=== PATIENT | male | born 1960 | race Caucasian/White ===

== ENCOUNTER → 2016-09-22 | Outpatient (REF) | payer BC | LOC: M LAB REF 16:27 | PROVIDERS: ATTEND Physician Assistant | DX: J02.9 Acute pharyngitis, unspecified (principal) ==

== ENCOUNTER 2018-03-14 17:22 | Emergency (ER) | payer BC | END 2018-03-14 19:59 | disposition home or self-care (01) | LOC: M ED 17:22 | DX: R91.8 Other nonspecific abnormal finding of lung field (principal); R13.10 Dysphagia, unspecified; J44.9 Chronic obstructive pulmonary disease, unspecified; K21.9 Gastro-esophageal reflux disease without esophagitis; Z96.0 Presence of urogenital implants; Z79.899 Other long term (current) drug therapy; Z88.5 Allergy status to narcotic agent; Z87.891 Personal history of nicotine dependence | CPT/HCPCS: 99283 ==

== ENCOUNTER → 2018-03-20 | Outpatient (REF) | payer BC ==
[2018-03-20 14:00] LABS: PLATELET COUNT, AUTOMATED 311 10^3/uL (150-450)
[2018-03-20 14:20] LABS: INR 0.94; PARTIAL THROMBOPLASTIN TIME 28.1 SECONDS (25.4-37.6); PROTHROMBIN TIME 12.7 SECONDS (12.1-14.4)
== END ==
LOC: M LAB REF 13:37
DX: Z01.812 Encounter for preprocedural laboratory examination (principal); R91.8 Other nonspecific abnormal finding of lung field
CPT/HCPCS: 85049

== ENCOUNTER → 2018-03-29 | Outpatient (CLI) | payer BC ==
[~2018-03-29] MED LIST: LIDOCAINE 1% MDV 20ML VIAL As Ordered
== END ==
LOC: M RADPRO 07:28
DX: R91.8 Other nonspecific abnormal finding of lung field (principal); Z53.8 Procedure and treatment not carried out for other reasons
CPT/HCPCS: 77012

== ENCOUNTER 2020-02-16 21:22 | Observation (INO) | payer BC ==
[~2020-02-16] VITALS: Ht 180.3 cm; Wt 59.0 kg
[~2020-02-16 21:22] MED LIST changes: -LIDOCAINE 1% MDV 20ML VIAL As Ordered; +PANT40TA29 PO
[2020-02-16 22:16] VITALS: BP 111/71
[2020-02-16] MEDS ORDERED: ONDANSETRON 4MG/2ML VIAL IV PRN (22:45)
[2020-02-16] MEDS ORDERED: MORPHINE 2 MG/ML 1ML VIAL (J2270) IV PRN (22:45)
[2020-02-16] MEDS ORDERED: PERCOCET 5MG/325MG TAB PO PRN (22:45)
[2020-02-16] MEDS ORDERED: ACETAMINOPHEN TAB 650MG DOSE (2X325MG) PO PRN (22:45)
--- NOTE | 2020-02-16 23:05 | IPNPDOC ---
Text Note Date of Service The patient was seen on 02/16/20. NOTE Patient seen and examined RLQ pain infectious - gastroenteritis/enterocolitis vs abdominal wall related less so acute appendicitis with mostly negative findings on prior CT abdomen and pelvis Plan IVF hydration pain control repeat labs and (+/-) CT abdomen and pelvis with PO and IV contrast in am H&P dictated [id number] BLUE CHAUDHRY MD Feb 16, 2020 23:05
[2020-02-16] MEDS ORDERED: FAMO40TA3 PO (23:30)
[2020-02-16] MEDS: LR 1,000 ML IV SCH (23:31)
[2020-02-17] VITALS (7 sets, daily range): BP systolic 111–150; BP diastolic 66–77
[2020-02-17 06:36] LABS: BASO % 0.3 % (0.0-1.0); EOS # 0.1 10^3/uL (0.0-0.5); EOS % 0.5 % (0.0-3.0); HEMOGLOBIN 12.7 g/dl (13.5-17.5); LYMPH # 1.5 10^3/uL (1.5-5.0); LYMPH % 12.4 % (24.0-44.0); MEAN CORPUSCULAR HEMOGLOBIN 29.7 pg (27.0-33.0); MEAN CORPUSCULAR HGB CONC 33.4 g/dl (32.0-36.5); MONO # 0.9 10^3/uL (0.0-0.8); MONO % 7.2 % (0.0-5.0); NEUTROPHILS # 9.4 10^3/uL (1.5-8.5); NEUTROPHILS % 79.1 % (36.0-66.0); PLATELET COUNT, AUTOMATED 271 10^3/uL (150-450); RED BLOOD COUNT 4.27 10^6/uL (4.30-6.10); WHITE BLOOD COUNT 11.8 10^3/uL (4.0-10.0)
[2020-02-17 06:53] LABS: BLOOD UREA NITROGEN 15 MG/DL (7-18); CALCIUM LEVEL 9.3 MG/DL (8.8-10.2); CARBON DIOXIDE LEVEL 28 MEQ/L (21-32); CHLORIDE LEVEL 105 MEQ/L (98-107); GLOMERULAR FILTRATION RATE > 60.0 (>49); GLUCOSE, FASTING 96 MG/DL (70-100); POTASSIUM SERUM 3.9 MEQ/L (3.5-5.1); SODIUM LEVEL 141 MEQ/L (136-145)
[2020-02-17] MEDS: GASTROGRAFIN SOLUTION 30ML PO SCH ×2 (06:55→08:21)
[2020-02-17] MEDS: PANTOPRAZOLE 40MG VIAL (C9113 PER 1) IV SCH (08:21)
[2020-02-17] MEDS ORDERED: ISOVUE-370 76% 100ML VIAL As Ordered ONE (09:24)
[2020-02-17] MEDS: AMPICILLIN SOD/SULBACTAM SOD 3 GM in D5W MINI-BAG PLUS 100 ML IV SCH ×3 (11:11→23:30)
[2020-02-17] MEDS: LR 1,000 ML IV SCH (12:27)
--- NOTE | 2020-02-17 13:32 | IPNPDOC ---
Text Note Date of Service The patient was seen on 02/17/20. NOTE Patient HD stable overnight, still reports pain just about same as when I saw him last night. No further nausea or vomiting. Afebrile On exam looks mildly uncomfortable abdomen, nondistended, soft, point tenderness over right lower quadrant area just above the inguinal canal, mild localized guarding Impression: RLQ abdominal pain I repeated the CT abdomen and pelvis with PO and IV contrast this time and shows evidence for appendicitis. I spoke to him about the results of this and plan to bring him to the operating room for laparoscopic appendectomy today. I anticipate, given prior abdominal procedure at the RLQ area, will have a good amount of adhesions. I have started him on Unasyn 3 gm IV q 6hrs while awaiting surgery. Consent obtained from the patient. VS,Tigre, I+O VS, Bude, I+O Laboratory Tests 02/17/20 05:41 Vital Signs Date Time Temp Pulse Resp B/P (MAP) Pulse Ox O2 Delivery O2 Flow Rate FiO2 02/17/20 06:00 96.8 84 20 111/73 (86) 97 02/16/20 22:16 Room Air I&O- Last 24 Hours up to 6 AM 02/17/20 06:00 Intake Total 337 ml Output Total 600 ml Balance -263 ml BLUE CHAUDHRY MD Feb 17, 2020 13:32
[2020-02-17] MEDS ORDERED: LIDOCAINE 1% SDV 30ML VIAL As Ordered ONE (14:17)
[2020-02-17] MEDS ORDERED: BUPIVACAINE HCL 0.25% 30ML VIAL As Ordered ONE (14:17)
--- NOTE | 2020-02-17 16:55 | HPE ---
DATE OF ADMISSION: 02/16/2020 CHIEF COMPLAINT: Right lower quadrant pain. HISTORY OF PRESENT ILLNESS: Mr. Snow is a 59-year-old gentleman, quite thin body habitus was transferred from [facility] where he initially presented. He complains of two-day history of abdominal pain that started yesterday abruptly. Initially, he thought he was having some gas-type pain. He refers to the pain over the right lower quadrant extending to the right groin area. He denies any sick contacts. He denies any fevers or chills. He did have a regular bowel movement yesterday. This morning when he woke up he tried to go to work, but could not. He continues to have pain over the same area and also now associated with multiple episodes of vomiting at one point. He had some blood in his vomitus. The patient was not able to hold things down. He reports he just had jell-o for lunch and he threw that up too. This made him go to the emergency room at [facility] where he was worked up. He was found to have leukocytosis with a negative CT for appendicitis. The emergency room physician there is pretty convinced that he most likely has appendicitis and thus wanted a surgical consult and thus he was sent to us for further evaluation. 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 The patient was not able to remember the details of both surgeries. He also reports prior history of kidney stones or suspicion thereof. PAST MEDICAL HISTORY INCLUDES: Chronic obstructive pulmonary disease (COPD)/emphysema. Esophageal reflux disease. Atypical chest pain. Back pain. History of kidney stones. Sleep apnea, not on CPAP. PAST SURGICAL HISTORY: Bilateral knee surgery. Kidney implant. Knee surgery Lithotripsy Pyeloplasty via right lower quadrant incision Diagnostic laparoscopy as prior mentioned. SOCIAL HISTORY: The patient denies smoking, occasional alcohol use. Denies any recreational drug use. HOME MEDICATIONS INCLUDE: Pantoprazole 40 mg b.i.d. REVIEW OF SYSTEMS: The patient reports prior to the start of pain he was in usual health. He denies any shortness of breath on effort. He denies any ongoing chest pain. Gastrointestinal symptoms: Reported in the history of present illness. He denies any dysuria, hematuria or nocturia. He does have significant history of kidney stones, as well as pyeloplasty on the right side. He denies any history of diabetes or thyroid problems. No fevers or chills being reported. No abnormal weight loss. He reports prior to today has a good appetite. Has regular bowel movements. PHYSICAL EXAMINATION: On examination, the patient is seen lying on bed, relatively comfortable. In appearance, he has thin body habitus. Normocephalic, atraumatic. Lips and mucosa appear dry. No jugular venous distention appreciated. Lung sounds are clear to auscultation bilaterally without wheezing. No labored breathing. Heart rate and rhythm are regular without murmurs. Abdomen is flat, relatively soft. As mentioned, he has a right lower lateral transverse incision from the pyeloplasty extending from the anterior axillary line to the paramedian area and just above the anterior superior iliac spine level. Also some small port sites from laparoscopic surgery. No umbilical or inguinal herniations appreciated. No tenderness over the epigastric area on the left side of the abdomen. He has point tenderness over the right lower quadrant area on light tactile palpation, also going towards the groin area also on just light tactile palpation with mild guarding. The patient does have discomfort with his knees being flexed to his abdomen. No extremity deformity or edema appreciated. LABORATORY: Laboratory was done at [facility]. This shows white cell count of 15.8, hemoglobin of 13.6, hematocrit of 40.8, platelets of 270. Neutrophils were 92%. Electrolytes are within normal limits. Glucose slightly high at 132. BUN of 18, creatinine of 0.6. Liver function tests are normal. Calcium is high at 10.4. Lipase is normal. Urinalysis does show presence of blood. Negative for leukocyte esterase or white blood cells. Has calcium oxalate present. He had a CT of abdomen and pelvis performed with IV contrast at [facility]. The read from this shows on acute intraabdominal process. Appendix not definitely visualized, but there are no right lower quadrant inflammatory changes. IMPRESSION AND PLAN: Right lower quadrant abdominal pain of two days duration. I do agree the patient is tender to palpation. This could probably be also abdominal wall related as light tactile palpation seems to trigger pain and the patient is tender with just light palpation, no worse with deep palpation, does not necessarily show peritonitis. He does not look sick. He does have leukocytosis. More thorough look on his prior history shows the possibility of prior episodes like this where there was a conundrum on the diagnosis. He had a diagnostic laparoscopy done back in 2005 looking for occult hernias, umbilical hernia, groin hernia, femoral hernia, which was negative. Although during that time, there was no mention of the state of the appendix. He does have right lower quadrant incisions and does history of back pain, so could be related to that. So, with the patient complaining of nausea and vomiting associated with this with leukocytosis, certainly an infectious process is a possibility. I will hold off on the antibiotics as I continue to observe him and just give him some intermittent pain medications and antinausea medications for now, as well as hydrate him. If pain does not get better, tomorrow I would like to repeat the CT with p.o. and IV contrast primarily to look for infectious process. If it has improved, most likely this is not appendicitis. The fact that the appendix is not identified actually has a positive correlation or good negative predictive value for the presence of appendicitis. Plan was explained to the patient and his questions answered and he has voiced agreement to this. FRANKO
[2020-02-17] MEDS ORDERED: propofoL 200 MG/20 ML VIAL As Ordered ONE (17:43)
[2020-02-17] MEDS ORDERED: fentaNYL 250 MCG/5 ML INJECTION (J3010) As Ordered ONE (17:43)
[2020-02-17] MEDS ORDERED: dexameTHASONE 4 MG/ML 1ML VIAL (J1100 PER 1MG) As Ordered ONE (17:43)
[2020-02-17] MEDS ORDERED: MIDAZOLAM INJ 2MG/2ML VIAL (J2250 PER 1MG) As Ordered ONE (17:43)
[2020-02-17] MEDS ORDERED: ONDANSETRON 4MG/2ML VIAL As Ordered ONE (17:43)
[2020-02-17] MEDS ORDERED: ROCURONIUM BROMIDE 50 MG/5 ML VIAL As Ordered ONE (17:44)
[2020-02-17] MEDS ORDERED: SUGAMMADEX SODIUM 500 MG/5 ML VIAL (BRIDION) As Ordered ONE (17:44)
[2020-02-17] MEDS ORDERED: KETOROLAC 60MG 2ML VIAL As Ordered ONE (17:45)
[2020-02-17] MEDS ORDERED: UNASYN 1.5 GM VIAL As Ordered ONE (17:56)
[2020-02-17] MEDS ORDERED: VASOPRESSIN INJ 20 UNITS/ML VIAL As Ordered ONE (18:34)
[2020-02-17] MEDS ORDERED: ePHEDrine SULFATE 25 MG/5 ML(5MG/ML) SYRINGE As Ordered ONE (18:54)
[2020-02-17] MEDS ORDERED: PHENYLephrine HCL 500 MCG/5 ML (100MCG/ML) SYRINGE (J2370) As Ordered ONE (18:54)
[2020-02-17] MEDS ORDERED: oxyCODONE 5MG TAB As Ordered ONE (19:30)
[2020-02-17] MEDS: KETOROLAC 30 MG/ML 1ML VIAL IV PRN (20:32)
[2020-02-17] MEDS ORDERED: fentaNYL 100 MCG/2 ML INJECTION (J3010) IV PRN (21:00)
[2020-02-17] MEDS ORDERED: ONDANSETRON 4MG/2ML VIAL IV PRN (21:00)
[2020-02-17] MEDS ORDERED: oxyCODONE 5MG TAB PO PRN (21:00)
[2020-02-17] MEDS ORDERED: LR 1,000 ML IV SCH (21:00)
[2020-02-18 00:30] VITALS: BP 137/74
[2020-02-18] MEDS: LR 1,000 ML IV SCH (05:30)
[2020-02-18] MEDS: AMPICILLIN SOD/SULBACTAM SOD 3 GM in D5W MINI-BAG PLUS 100 ML IV SCH ×2 (05:30→11:09)
[2020-02-18 06:00] VITALS: BP 128/75
[2020-02-18 06:11] LABS: BASO % 0.5 % (0.0-1.0); EOS # 0.1 10^3/uL (0.0-0.5); EOS % 1.3 % (0.0-3.0); HEMATOCRIT 37.5 % (42.0-52.0); HEMOGLOBIN 12.3 g/dl (13.5-17.5); LYMPH # 1.6 10^3/uL (1.5-5.0); MEAN CORPUSCULAR HEMOGLOBIN 29.6 pg (27.0-33.0); MEAN CORPUSCULAR HGB CONC 32.8 g/dl (32.0-36.5); MEAN CORPUSCULAR VOLUME 90.4 fl (80.0-96.0); MONO # 0.7 10^3/uL (0.0-0.8); MONO % 8.9 % (0.0-5.0); NEUTROPHILS % 67.2 % (36.0-66.0); PLATELET COUNT, AUTOMATED 233 10^3/uL (150-450); RED BLOOD COUNT 4.15 10^6/uL (4.30-6.10); WHITE BLOOD COUNT 7.4 10^3/uL (4.0-10.0)
[2020-02-18 06:32] LABS: BLOOD UREA NITROGEN 12 MG/DL (7-18); CALCIUM LEVEL 9.2 MG/DL (8.8-10.2); CARBON DIOXIDE LEVEL 31 MEQ/L (21-32); CHLORIDE LEVEL 102 MEQ/L (98-107); CREATININE FOR GFR 0.81 MG/DL (0.70-1.30); GLOMERULAR FILTRATION RATE > 60.0 (>49); GLUCOSE, FASTING 87 MG/DL (70-100); POTASSIUM SERUM 4.1 MEQ/L (3.5-5.1); SODIUM LEVEL 139 MEQ/L (136-145)
[2020-02-18] MEDS: PANTOPRAZOLE 40MG VIAL (C9113 PER 1) IV SCH (09:08)
[2020-02-18] MEDS: KETOROLAC 30 MG/ML 1ML VIAL IV PRN (09:10)
[2020-02-18] MEDS ORDERED: PERCOCET PO (10:59)
--- NOTE | 2020-02-18 11:02 | IPNPDOC ---
Text Note Date of Service The patient was seen on 02/18/20. NOTE POD1 laparoscopic appendectomy feels a lot better, minimal discomfort at incisions, tolerating diet. Denies nausea, vomiting VS stable, afebrile Looks very comfortable normal resp effort nontachycardic abdomen, flat soft, nondistended, 3 port sites, mild staining at the infra umbilical port site. clean and dry. nontender rlq area Impression Acute Appendicitis discussed operative findings, markedly enlarged appendix, await final path no perforation, free infected fluid, no further abx needed ok to go home follow up in clinic VSTigre, I+O VSTigre I+O Laboratory Tests 02/18/20 05:46 Vital Signs Date Time Temp Pulse Resp B/P (MAP) Pulse Ox O2 Delivery O2 Flow Rate FiO2 02/18/20 06:00 98.4 69 18 128/75 (92) 98 02/18/20 00:30 Room Air 02/17/20 19:31 10.0 I&O- Last 24 Hours up to 6 AM 02/18/20 06:00 Intake Total 3215 ml Output Total 1882 ml Balance 1333 ml BLUE CHAUDHRY MD Feb 18, 2020 11:02
--- NOTE | 2020-03-11 12:48 | RO ---
DATE OF OPERATION: 02/17/2020 PREOPERATIVE DIAGNOSIS: Acute appendicitis. POSTOPERATIVE DIAGNOSIS: Acute appendicitis PROCEDURE: Laparoscopic appendectomy SURGEON: Praful Dorman MD ANESTHESIA: General anesthesia. ESTIMATED BLOOD LOSS: 10 ml COMPLICATIONS: None. SPECIMEN: Appendix. OPERATIVE FINDINGS INCLUDE: Markedly dilated appendix throughout its course with falciform dilation probably containing an appendicolith close to the base of the appendix. The base appears healthy. No gross perforation noted. No free fluid or abscess noted. PROCEDURE NOTE: Mr. Snow is a 59-year-old male admitted to the hospital with about a two day history of arun lower quadrant pain, transferred from [facility]. He had leukocytosis there, but initial imaging showed the appendix was not identified. He continued to have abdominal pain, though his leukocytosis improved. We repeated CT with oral and IV contrast and appendicitis was identified. He was started on antibiotics and now brought to the operating room (OR) for appendectomy. The patient was brought to the operating room, placed supine on the table, compression was placed on both lower extremities for deep venous thrombosis (DVT) prophylaxis. He was allowed to urinate prior to the operating room to decompress his urinary bladder. General endotracheal anesthesia was then started. His abdomen then prepped and draped in the usual sterile fashion. Surgical time-out was performed prior to start of the incision. The patient has a prior right lower lateral incision from a pyeloplasty from UPJ obstruction, likewise port sites from prior laparoscopy. Entry through the abdomen done through the left upper quadrant area. A Veress needle was inserted in controlled fashion. Proper placement confirmed with saline drop technique. Co2 insufflation started to a pressure of 15 mmHg. Using the same incision, a 5 mm port was placed under direct vision of laparoscope. The insertion site was inspected for injury, none was found. He was then placed in a Trendelenburg position. The right side tilted up to further expose the appendix into view. A 5 mm left lower quadrant port was placed. He had some omental adhesions underneath the umbilicus going down towards the suprapubic area from prior surgery and this was taken down with a Harmonic scalpel. After that, an 8 mm port was placed midway between the suprapubic area and umbilicus. The appendix was identified. This was adhered slightly towards the right lower lateral abdominal wall. The course of the appendix showed dilated appendix throughout with moderate congestion, but no gross perforation noted. The cecum was retracted towards the right upper quadrant with some post surgical adhesions. The lateral attachments of the appendix from its adhesions were released. The mesoappendix was divided with a Harmonic scalpel. The appendix was released from its adhesive attachments through the lateral abdominal wall, retroperitoneum and cecum to the base of the appendix. This appears quite enlarged, especially given his thin body habitus, almost as large as the bowel. There is noted falciform dilation close to the base of the appendix, probably where the appendicolith is. I up-sized the 8 mm port to a 12 mm port to accommodate the stapler. A 45 mm stapler with a blue load was used to transect the appendix at the base. The staple line was inspected and noted to be healthy. There is small bleeding at the staple line, which is cauterized. The surgical site was inspected for further bleeding, likewise for other pathology, none was found. The appendix was delivered in an Endo Catch bag and retrieved through the 12 mm port sites. After final view of the abdomen, the abdomen was deflated. All ports were removed. Fascial defect was repaired with 0-Vicryl in a mattress fashion. All skin incisions closed with 4-0 Monocryl in subcuticular fashion. Steri-Strips and gauze dressing has been placed. The patient was then promptly awakened, extubated and brought to the recovery room in stable condition. FRANKO
--- NOTE | 2020-03-17 09:17 | REP ---
CONTRAST ENHANCED CT OF THE ABDOMEN AND PELVIS CLINICAL: Right lower quadrant pain. TECHNIQUE: Axial contrast enhanced images from the lung bases to the pubic symphysis using oral (per protocol) and 100 cc Isovue-370 intravenous contrast material with coronal and sagittal reformations. FINDINGS: A dilated enhancing fluid filled appendix measures 16 mm maximal diameter and is consistent with acute appendicitis (images 104-119). Small amount of free fluid extends into the pelvis. No free air to suggest a perforation. No bowel obstruction. Remainder of the small and large bowel is normal. Liver, spleen, pancreas, gallbladder, bilateral adrenal glands, and left kidney are essentially normal. Small hepatic hypodensity, likely cyst. A 2 cm left renal cyst. Splenic calcifications consistent with prior granulomatous disease. Right kidney demonstrates malrotation and 4 mm nonobstructing renal calculus without perinephric stranding or hydronephrosis. Pelvis demonstrates normal bladder and age-appropriate prostate/seminal vesicles. No adenopathy. Abdominal aorta and vasculature normal. Musculoskeletal structures are intact. IMPRESSION: * Acute appendicitis with dilated enhancing fluid filled appendix measuring up to 16 mm diameter and small amount of free fluid in the pelvis. No drainable collection/abscess or perforation. No obstruction. * Malrotated right kidney with nonobstructing calculus. * Nonspecific benign chronic findings. MTDD
--- NOTE | 2020-04-26 11:49 | DS.PDOC ---
Discharge Summary General Date of Admission Feb 16, 2020 at 22:18 Date of Discharge 02/18/20 Attending Physician: BLUE CHAUDHRY MD Discharge Summary PROCEDURES PERFORMED DURING STAY: Laparoscopic appendectomy. ADMITTING DIAGNOSES: 1. right lower quadrant abdominal pain. DISCHARGE DIAGNOSES: 1. acute appendicitis. COMPLICATIONS/CHIEF COMPLAINT: R Lower Quadrant Pain. HISTORY OF PRESENT ILLNESS: . Mr. Snow is a 59-year-old gentleman, quite thin body habitus was transferred from [facility] where he initially presented. He complains of two- day history of abdominal pain that started yesterday abruptly. Initially, he thought he was having some gas-type pain. Herefers to the pain over the right lower quadrant extending to the right groin area. He denies any sick contacts. He denies any fevers or chills. He did have a regular bowel movement yesterday. This morning when he woke up he tried to go to work, but could not. He continues to have pain over the same area and also now associated with multiple episodes of vomiting at one point. He had some blood in his vomitus. The patient was not able to hold things down. He reports he just had jell-o for lunch and he threw that up too. This made him goto the emergency room at [facility] where he was worked up. He was found to have leukocytosis with a negative CT for appendicitis. The emergency room physician there is pretty convinced that he most likely has appendicitis and thus wanted a surgical consult and thus he was sent to us for further evaluation. 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 The patient was not able to remember the details of both surgeries. He also reports prior history of kidney stones or suspicion thereof. HOSPITAL COURSE: Patient was admitted overnight after presentation at [facility] and subsequently transferred to our institution. I repeated CT of the abdomen and pelvis, this time with by mouth and IV contrast. His initial noncontrast CT done at [facility] was unable to find the appendix. The repeat CT scan consistent with acute appendicitis and I subsequently brought to the operating room for laparoscopic appendectomy. He did well from the procedure and was started on clear liquids and advanced to regular diet the following day. He remained afebrile postoperatively and felt much better the next morning. He was subsequently discharged home. DISCHARGE MEDICATIONS: Please see below. ALLERGIES: Please see below. PHYSICAL EXAMINATION ON DISCHARGE: VITAL SIGNS: Please see below. Referred to the progress note for the day of discharge LABORATORY DATA: Please see below. IMAGING: CT abdomen and pelvis with by mouth and IV contrast PROGNOSIS: Good ACTIVITY: Light activity 1 week, and advance as tolerated. DIET: Advance as tolerated DISCHARGE PLAN: Patient is discharged home. No further antibiotics needed given noncomplex appendicitis on presentation DISPOSITION: Home, Self-Care. DISCHARGE INSTRUCTIONS: 1. As above 2. Follow up in clinic in 2 weeks' time. ITEMS TO FOLLOWUP ON ON OUTPATIENT: 1. Pathology. DISCHARGE CONDITION: Stable. TIME SPENT ON DISCHARGE: Greater than 30 minutes. Discharge Medications Scheduled Famotidine (Famotidine) 40 Mg Tablet, 40 MG PO QHS, (Reported) Scheduled PRN Oxycodone/Acetaminophen (Oxycodone-Acetaminophen 5-325) 1 Each Tablet, 1 TAB PO Q6HP PRN for pain Allergies Coded Allergies: codeine (Verified Adverse Reaction, Intermediate, NAUSEA, 02/16/20) BLUE CHAUDHRY MD Apr 26, 2020 11:49
== END 2020-02-18 13:54 | disposition home or self-care (01) ==
LOC: M MSPAV 22:18
PROVIDERS: ADMIT Surgery; ATTEND Surgery
DX: K35.890 Other acute appendicitis without perforation or gangrene (principal); D72.829 Elevated white blood cell count, unspecified; J44.9 Chronic obstructive pulmonary disease, unspecified; K21.9 Gastro-esophageal reflux disease without esophagitis; R07.89 Other chest pain; G47.30 Sleep apnea, unspecified; Z79.899 Other long term (current) drug therapy; Z88.5 Allergy status to narcotic agent
CPT/HCPCS: 36415; 44970; 74177; 80048; 85025; 88304; 96361; 96365; 96366; 96375; 96376; C9113; J1100; J1885; J2250; J2370; J2405; J3010; Q9963; Q9967; U0002

== ENCOUNTER → 2024-03-25 | Outpatient (CLI) | payer OTHER ==
[~2024-03-25] MED LIST changes: +FAMO40TA3 PO; +PERCOCET PO
== END ==
LOC: M RAD 06:42
PROVIDERS: ATTEND Family Medicine
DX: F17.210 Nicotine dependence, cigarettes, uncomplicated (principal)

== ENCOUNTER → 2025-02-24 | Outpatient (CLI) | payer MEDICARE ==
[~2025-02-24] MED LIST changes: +METHACHOLINE KIT (6 VIAL.NEB PREMIX) INH ONE
== END ==
LOC: EDBD → M CARPUL 12:01
PROVIDERS: ATTEND Internal Medicine Pulmonary Disease
DX: R06.02 Shortness of breath (principal)
CPT/HCPCS: 88738; 94010; 94070; 94726; 94729; 95070; J7674

== ENCOUNTER → 2025-04-10 | Outpatient (CLI) | payer MEDICARE, MEDICAID ==
[~2025-04-10] MED LIST changes: -METHACHOLINE KIT (6 VIAL.NEB PREMIX) INH ONE
== END ==
LOC: M PLAIMG 09:37
PROVIDERS: ATTEND Internal Medicine Pulmonary Disease
DX: R91.8 Other nonspecific abnormal finding of lung field (principal)